=== PATIENT | male | born 1995 | race Caucasian/White ===

== ENCOUNTER 2018-08-17 16:05 | Emergency (ER) | payer MEDICAID ==
[~2018-08-17] VITALS: Ht 180.3 cm; Wt 76.0 kg
[2018-08-17 16:07] VITALS: BP 120/80
== END 2018-08-17 17:15 | disposition left against medical advice (07) ==
LOC: ER 16:05
DX: Z53.21 Procedure and treatment not carried out due to patient leaving prior to being seen by health care provider (principal)